=== PATIENT | female | born 1955 | race Hispanic/Latino ===

== ENCOUNTER 2021-10-03 13:54 | Outpatient (CLI) | payer BC | END 2021-10-03 13:55 | disposition home or self-care (01) | LOC: CSHRAD 13:54 | PROVIDERS: ATTEND Internal Medicine | DX: S99.922A Unspecified injury of left foot, initial encounter (principal); S99.912A Unspecified injury of left ankle, initial encounter; M77.32 Calcaneal spur, left foot; M79.89 Other specified soft tissue disorders ==

== ENCOUNTER 2022-04-05 14:02 | Outpatient (CLI) | payer BC | END 2022-04-05 14:03 | disposition home or self-care (01) | LOC: CSHMAMMO 14:02 | PROVIDERS: ATTEND Internal Medicine | DX: Z12.31 Encounter for screening mammogram for malignant neoplasm of breast (principal); Z90.11 Acquired absence of right breast and nipple; Z85.3 Personal history of malignant neoplasm of breast | CPT/HCPCS: 77063; 77067 ==